=== PATIENT | female | born 1985 | race Caucasian/White ===

== ENCOUNTER 2018-07-01 15:30 | Outpatient (RCR) | payer OTHER, SELFPAY ==
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
== END 2018-07-16 15:36 | disposition home or self-care (01) ==
LOC: PT.CARL 15:30
PROVIDERS: Visit Provider Internal Medicine Adolescent Medicine
DX: M75.101 Unspecified rotator cuff tear or rupture of right shoulder, not specified as traumatic (principal)
CPT/HCPCS: 97010; 97014; 97033; 97110; 97163; G0283

== ENCOUNTER 2019-09-20 14:29 | Emergency (ER) | payer BC, SELFPAY ==
--- NOTE | 2019-09-20 15:16 | HMH.EDUTC ---
[facility] [place] Clinical Impression: Sinusitis Qualifiers: Sinusitis location: unspecified location Chronicity: acute Recurrence: non-recurrent Qualified Code(s): J01.90 - Acute sinusitis, unspecified Disposition: Home, Self-Care Condition on Discharge: Good Instructions: Sinusitis, DI for Sinusitis Additional Instructions: Drink plenty of fluids. Take tylenol or ibuprofen for pain or fever. Take the medications as directed. Follow up with your regular doctor. GO TO THE ER FOR ANY WORSENING SYMPTOMS FOLLOW THE DIRECTIONS ON THE COVID-19 HAND OUT THAT WE GAVE YOU REGARDING SELF-ISOLATION UNTIL YOU KNOW YOUR COVID-19 RESULTS Prescriptions: Brompheniramine/Pseudoephed/Dm [Bromfed Dm Cough Syrup] 5 ml PO Q6HP PRN #240 syrup PRN Reason: Cough Transmission Status: Received by [id number] predniSONE [Deltasone 10mg tablet] 10 mg PO BID 3 Days #6 tab Transmission Status: Received by [id number] Azithromycin [Z-Simeon 250mg Tab*] 250 mg PO UD DOSE PK #6 tab Transmission Status: Received by [id number] Referrals: Santhosh Patricio MD [Primary Care Provider] - Time of Disposition: 15:49 Medical Decision Making - Medical Records Medical records reviewed: No: I reviewed the patient's medical records. - [place] Inquiry Pt receiving controlled substance: No Vital Signs: 09/20/19 15:18 Temperature 98.7 F Temperature Source Oral Pulse Rate [Right Brachial] 89 Respiratory Rate 16 Blood Pressure [Right Arm] 115/80 Blood Pressure Mean [Right Arm] 91 Blood Pressure Source [Right Arm] Automatic Cuff Blood Pressure Position [Right Arm] Sitting 02 Sat by Pulse Oximetry 100 Oxygen Delivery Method Room Air Orders (Tests/Meds): ORDERS Category Date Time Status Coronavirus 19 Swab (OUTPT) Routine Lab 09/20/19 15:35 Received [facility] [place] HPI - General Stated complaint: resp syptoms Time Seen by Provider: 09/20/19 15:16 - History of Present Illness Provider Complaint: She c/o 2 days of worsening sinus congestion. She is also having left ear pain. She denies any known exposure to COVID-19. - Related Data Previous Rx's Medication Instructions Recorded Naproxen [Naproxen 500mg tab] 500 mg PO BID #28 tablet 01/23/18 Azithromycin [Z-Simeon 250mg Tab*] 250 mg PO UD DOSE PK #6 tab 09/20/19 Brompheniramine/Pseudoephed/Dm 5 ml PO Q6HP PRN #240 syrup 09/20/19 [Bromfed Dm Cough Syrup] predniSONE [Deltasone 10mg tablet] 10 mg PO BID 3 Days #6 tab 09/20/19 Allergies Allergy/AdvReac Type Severity Reaction Status Date / Time cephalexin [From Keflex] Allergy Verified 01/23/18 09:53 [facility] History - Hepatitis A Screen Attestation statement:: This patient has been screened for Hepatitis A risk factors. I have reviewed the patient's past medical history: Yes Medical History: Reports:: Anxiety Denies:: Cancer, Diabetes Mellitus Type 1, Diabetes Mellitus Type 2, MRSA Other Surgeries: Yes: Amputation: No Fractures: No - Social History Smoking Status: Never smoker Alcohol Intake: never - Psychiatric History Pschychiatric History:: Reports:: Anxiety ROS Obtained: Yes All systems reviewed & no additional complaints - Constitutional Constitutional: Denies chills, Denies fever(s), Reports poor appetite, Reports malaise - Eyes Eyes: Denies eye discharge - ENT Ears, Nose, Mouth, and Throat: Reports as per HPI - Cardiovascular Cardiovascular: Denies chest pain - Respiratory Respiratory: No chest congestion, No cough Physical Exam - General General appearance: alert, in no apparent distress - Head Head exam: atraumatic, normocephalic, normal inspection - Eye Eye exam: Present: normal appearance, PERRL, EOMI - ENT ENT exam: Present: normal exam, normal oropharynx, mucous membranes moist, TM's normal bilaterally, normal external ear exam - Neck Neck exam: Present: normal inspection, full ROM, trachea midline. Absent: meningismus, lymphade
[2019-09-20 15:18] VITALS: BP 115/80; PULSE 89; RESP 16; TEMP 37.1; O2SAT 100; BMI 29.7
[2019-09-20 15:50] VITALS: BP 115/80; PULSE 89; RESP 16; TEMP 37.1; O2SAT 100
[2019-09-20 19:25] LABS: UTC Strep Screen (Rapid) Negative (Negative)
== END 2019-09-20 15:56 | disposition home or self-care (01) ==
PROVIDERS: Emergency Provider Nurse Practitioner Family; PCP Internal Medicine Adolescent Medicine
DX: J01.90 Acute sinusitis, unspecified (principal); Z20.828 Contact with and (suspected) exposure to other viral communicable diseases; F41.9 Anxiety disorder, unspecified; Z88.1 Allergy status to other antibiotic agents
CPT/HCPCS: 87880; 99202; U0003

== ENCOUNTER → 2019-11-12 15:39 | Outpatient (CLI) | payer BC, SELFPAY | PROVIDERS: PCP Internal Medicine Adolescent Medicine; Visit Provider Internal Medicine Adolescent Medicine | DX: Z03.818 Encounter for observation for suspected exposure to other biological agents ruled out (principal) | CPT/HCPCS: U0003 ==

== ENCOUNTER 2020-03-07 13:41 | Emergency (ER) | payer OTHER, SELFPAY ==
--- NOTE | 2020-03-07 14:41 | XR_ITS ---
PROCEDURE: XR LUMBAR SPINE 2-3V CLINICAL INDICATION: FALL AT WORK COMPARISON: No exams were available for comparison FINDINGS: No fracture or dislocation. No lytic or blastic change. There is normal mineralization. The joint spaces are well-preserved. No significant degenerative/arthritic changes. No erosive changes evident. Other findings:None. IMPRESSION: Negative lumbar Dictated by: Yobani Ramirez MD 03/07/2020 15:47 Yobani aRmirez MD in [place] 03/07/2020 15:47
--- NOTE | 2020-03-07 14:41 | XR_ITS ---
PROCEDURE: XR COCCYX 2V CLINICAL INDICATION: FALL AT WORK Posttraumatic pain COMPARISON: CR XR HIP LT 2-3V W/PELVIS from 03/07/2020 CR XR LUMBAR SPINE 2-3V from 03/07/2020 FINDINGS: There is anterior angulation at the tip of the coccyx. No displaced fracture is evident. There is an inverted munson-shaped lucency noted over the lower pelvic region which is reported to represent a menstrual cup. The joint spaces are well-preserved. No significant degenerative/arthritic changes. No erosive changes evident. Other findings:None. IMPRESSION: Anterior angulation at the tip of the coccyx. This is nonspecific and could be due to nondisplaced fracture either acute or chronic. No displaced fractures are evident. Inverted munson-shaped lucency in the lower pelvic region which is reported to represent a menstrual cup. Dictated by: Yobani Ramirez MD 03/07/2020 15:46 Yobani Ramirez MD in [place] 03/07/2020 15:46
--- NOTE | 2020-03-07 14:41 | XR_ITS ---
PROCEDURE: XR HIP LT 2-3V W/PELVIS CLINICAL INDICATION: FALL AT WORK Pain COMPARISON: No exams were available for comparison FINDINGS: No fracture or dislocation is evident. No significant degenerative change. No lytic or blastic change. Inverted munson-shaped lucency overlying the lower pelvic region reported represent a menstrual cup IMPRESSION: Negative left hip Dictated by: Yobani Ramirez MD 03/07/2020 15:48 Yobani Ramirez MD in [place] 03/07/2020 15:48
[2020-03-07 14:50] VITALS: BP 137/90; PULSE 120; RESP 14; TEMP 36.1; O2SAT 97; BMI 29.7
--- NOTE | 2020-03-07 16:04 | HMH.EDUTC ---
[facility] [place] Disposition Clinical Impression: Fractured coccyx Qualifiers: Encounter type: initial encounter Fracture type: closed Qualified Code(s): S32.2XXA - Fracture of coccyx, initial encounter for closed fracture Fall Qualifiers: Encounter type: initial encounter Qualified Code(s): W19.XXXA - Unspecified fall, initial encounter Low back pain Qualifiers: Chronicity: acute Back pain laterality: unspecified Sciatica presence: without sciatica Qualified Code(s): M54.5 - Low back pain Disposition: Home, Self-Care Condition on Discharge: Good Instructions: Coccyx Fracture, DI for Coccyx Fracture Additional Instructions: Follow up with your primary care doctor. Rest, take ibuprofen. I sent in a prescription to your pharmacy. GO TO THE ER FOR ANY WORSENING SYMPTOMS OR CONCERNS Prescriptions: Ibuprofen [Ibuprofen 600mg Tablet] 600 mg PO Q6HP PRN #30 tab PRN Reason: Mild Pain Transmission Status: Received by [facility] Referrals: Santhosh Patricio MD [Primary Care Provider] - Forms: Work/School Release Time of Disposition: 16:12 Medical Decision Making - Medical Records Medical records reviewed: No: I reviewed the patient's medical records. - [place] Inquiry Pt receiving controlled substance: No Vital Signs: 03/07/20 14:50 03/07/20 16:18 Temperature 97.0 F L 97.0 F L Temperature Source Oral Pulse Rate 120 H Pulse Rate [Right Brachial] 120 H Respiratory Rate 14 14 Blood Pressure 137/90 Blood Pressure [Right Arm] 137/90 Blood Pressure Mean [Right Arm] 105 Blood Pressure Source [Right Arm] Automatic Cuff Blood Pressure Position [Right Arm] Sitting 02 Sat by Pulse Oximetry 97 Oxygen Delivery Method Room Air - Radiology Data #1 Image(s): L-Spine Image Reviewed: Yes I reviewed the patient's radiology image, Yes I have reviewed radiologist's interpretation PROCEDURE: XR LUMBAR SPINE 2-3V CLINICAL INDICATION: FALL AT WORK COMPARISON: No exams were available for comparison FINDINGS: No fracture or dislocation. No lytic or blastic change. There is normal mineralization. The joint spaces are well-preserved. No significant degenerative/arthritic changes. No erosive changes evident. Other findings:None. IMPRESSION: Negative lumbar Dictated by: Yobani Ramirez MD 03/07/2020 15:47 Yobani Ramirez MD in [place] 03/07/2020 15:47 #2 Image(s): Other (coccyx) Image Reviewed: Yes I reviewed the patient's radiology image, Yes I have reviewed radiologist's interpretation Preliminary Findings: Abnormal PROCEDURE: XR COCCYX 2V CLINICAL INDICATION: FALL AT WORK Posttraumatic pain COMPARISON: CR XR HIP LT 2-3V W/PELVIS from 03/07/2020 CR XR LUMBAR SPINE 2-3V from 03/07/2020 FINDINGS: There is anterior angulation at the tip of the coccyx. No displaced fracture is evident. There is an inverted munson-shaped lucency noted over the lower pelvic region which is reported to represent a menstrual cup. The joint spaces are well-preserved. No significant degenerative/arthritic changes. No erosive changes evident. Other findings:None. IMPRESSION: Anterior angulation at the tip of the coccyx. This is nonspecific and could be due to nondisplaced fracture either acute or chronic. No displaced fractures are evident. Inverted munson-shaped lucency in the lower pelvic region which is reported to represent a menstrual cup. Dictated by: Yobani Ramirez MD 03/07/2020 15:46 Yobani Ramirez MD in [place] 03/07/2020 15:46 #3 Image(s): Hip Image Reviewed: Yes I reviewed the patient's radiology image, Yes I have reviewed radiologist's interpretation Preliminary Findings: No Fracture Seen PROCEDURE: XR HIP LT 2-3V W/PELVIS CLINICAL INDICATION: FALL AT WORK Pain COMPARISON: No exams were available for comparison FINDINGS: No fracture or dislocation is evident. No significant degenerative change. No lytic or blastic change. Inverted munson-shaped lucency
[2020-03-07 16:18] VITALS: BP 137/90; PULSE 120; RESP 14; TEMP 36.1; O2SAT 97
== END 2020-03-07 16:20 | disposition home or self-care (01) ==
PROVIDERS: Emergency Provider Nurse Practitioner Family; PCP Internal Medicine Adolescent Medicine
DX: S32.2XXA Fracture of coccyx, initial encounter for closed fracture; W10.9XXA Fall (on) (from) unspecified stairs and steps, initial encounter; Y92.69 Other specified industrial and construction area as the place of occurrence of the external cause; Y99.0 Civilian activity done for income or pay
CPT/HCPCS: 72100; 72220; 73502; 99202; G0463

== ENCOUNTER → 2020-10-02 16:01 | Outpatient (CLI) | payer BC, SELFPAY | PROVIDERS: Visit Provider Internal Medicine Adolescent Medicine | DX: R30.0 Dysuria (principal) | CPT/HCPCS: 87086; 87088; 87186 ==

== ENCOUNTER → 2020-11-27 17:46 | Outpatient (CLI) | payer OTHER, SELFPAY | PROVIDERS: Visit Provider Internal Medicine Adolescent Medicine | DX: N30.00 Acute cystitis without hematuria (principal); B96.20 Unspecified Escherichia coli [E. coli] as the cause of diseases classified elsewhere | CPT/HCPCS: 87086; 87088; 87186 ==

== ENCOUNTER → 2021-03-27 08:24 | Outpatient (CLI) | payer OTHER, SELFPAY ==
[2021-03-28 12:13] LABS: Hepatitis B Surf Ab Quant 93.3 mIU/mL (Immunity>9.9)
[2021-03-28 17:24] LABS: Measles Antibodies, IgG <13.5 AU/mL (Immune >16.4); Mumps Abs, IgG <9.0 AU/mL (Immune >10.9); Varicella Zoster IgG 717 index (Immune >165)
[2021-03-29 07:50] LABS: Rubella Antibodies, IgG 1.65 index (Immune >0.99)
[2021-03-29 22:08] LABS: QuantiFERON-TB Gold Plus Negative (Negative)
== END ==
PROVIDERS: PCP Nurse Practitioner Family; Visit Provider Nurse Practitioner Family
DX: Z01.84 Encounter for antibody response examination (principal)
CPT/HCPCS: 36415; 86480; 86706; 86735; 86762; 86765; 86787

== ENCOUNTER → 2022-12-13 14:42 | Outpatient (CLI) | payer OTHER, SELFPAY | PROVIDERS: PCP Family Medicine; Visit Provider Nurse Practitioner Family | DX: J02.9 Acute pharyngitis, unspecified (principal) | CPT/HCPCS: 87070 ==

== ENCOUNTER 2024-09-09 10:15 | Outpatient (CLI) | payer BC, SELFPAY ==
--- OUTSIDE RECORDS SUMMARY | 2015-09-12 09:15 | XMS_ITS | Encounter Summary ---
Author Organization [facility] Address [address] [place] [address] Care Team Providers Care Metal Die Finisher Name Role Phone Santhosh Patricio MD Primary Care Provider [phone] Encounter Details Date Type Department Care Team (Latest Contact Info) Description 09/12/2015 9:15 AM EDT Hospital Encounter [facility] [phone] First trimester Social History Tobacco Use Types Packs/Day Years Used Date Smoking Tobacco: Never Smokeless Tobacco: Never Alcohol Use Standard Drinks/Week Comments No 0 (1 standard drink = 0.6 oz pur e alcohol) Abuse Screen Answer Date Recorded Unsafe at Home or Work/School Not on file Feels Threatened by Someone? Not on file 10/2022 Does Anyone Keep You from Co ntacting Others or Doint Things Outside the Home? Not on file 11/18/2022 Physical Sign of Abuse Present Not on file 1 Housing Stability Answer Date Recorded Current Living Arrangements Not on file 10/2022 Potentially Unsafe Housing Conditions Not on michele e 11/18/2022 Family and Community Support Answer Henri e Recorded Help with Day-to-Day Activities Not on file 11/18/2022 Lonely or Isolated Not on file 11/18/2022 Employment Answer Date Recorded Do you want help finding or keeping work or a hugh b? Not on file 11/18/2022 Disabilities Answer Date Recorded Concentrating, Remembering, or Making Decisions Difficulty Not on file 11/18/2022 Doing Errands Independently Difficulty Not on fi le 11/18/2022 Education Answer Date Recorded Help with school or training? Not on file Preferred Language Not on file 11/18/2022 Comments No Sex and Gender Information Value Date Recorded Sex Assigned at Not on file Legal Sex Female 1:07 PM EDT Gender Identity Not on file Sexual Orientation Not on file documented as of this encounter Plan of Treatment Not on file documented as of this encounter Procedures Procedure Name Priority Date/Time Associated Diagnosis Comments US OB TRANSVAGINAL Routine 09/12/2015 10 :12 AM EDT First trimester documented in this encounter Results * US ob transvaginal (09/12/2015 10:12 AM EDT) Anatomical Region Laterality Modality Body Ultrasound 09/12/2015 9:42 AM EDT Narrative 09/12/2015 2:49 PM EDT PAT NAME: ELENA SCHMITT MED REC#: [id number] DA: [id number] PAT GEND: F PAT TYPE: O EXAM HENRI: [id number] REF PHYS COSTA ALANIZ Indication ======== Dating. History ====== Previous Outcomes 3 Para 2 Other: C/s & Method ====== Transvaginal ultrasound examination, Voluson E6. Adequate view. ========= Craven . Number of fetuses: 1. Dating ====== LMP on: 07/02/2015 GA by LMP 10 w + 2 d CHELSEA by LMP: 04/07/2016 Ultrasound examination on: 09/12/2015 GA by U/S based upon: CRL GA by U/S 9 w + 2 d CHELSEA by U/S: 04/14/2016 Assigned: Dating performed on 09/12/2015, based on ultrasound (CRL) Assigned GA 9 w + 2 d Assigned CHELSEA: 04/14/2016 Assessment Gestational sac: visualized Location: intrauterine Yolk sac: visualized Embryo: visualized CRL 25.3 mm 51% 9w 2d Cardiac activity: present FHR 178 bpm Placenta: Too early to evaluate Maternal Structures Uterus and ovaries are within normal limits. There is a corpus luteum on the left ovary. Impression ========= Single viable intrauterine with normal cardiac activity and biometry not consistent with clinical dates. Recommendation Follow-up as clinically indicated. Assistant Education Director: Ale Coles RDMS Physician: Master Joel MD Electronically signed by: Master Joel MD at: 14:49 Procedure Note Master Joel MD - 09/12/2015 PAT NAME: ELENA SCHMITT [facility] REC#: [id number] DA: [id number] PAT GEND: F PAT TYPE: O EXAM HENRI: [id number] REF PHYS COSTA ALANIZ Indication ======== Dating. History ====== Previous Outcomes Gravida3 Para2 Other:C/s & Method ====== Transvaginal ultrasound examination, Voluson E6. Adequate view. ========= Craven . Number of fetuses: 1. Dating ====== LMP on:07/02/2015 GA by LMP10 w + 2 d CHELSEA by LMP:04/07/2016 Ultrasound examination on:09/12/2015 GA by U/S based upon:CRL GA by U/S9 w + 2 d CHELSEA by U/S:04/14/2016 Assigned:Dating performed on 09/12/2015, based on ultrasound (CRL) Assigned GA9 w + 2 d Assigned CHELSEA:04/14/2016 Assessment Gestational sac:visualized Location:intrauterine Yolk sac:visualized Embryo:visualized CRL25.3 mm51% 9w 2d Cardiac activity:present LTH050 bpm Placenta:Too early to evaluate Maternal Structures Uterus and ovaries are within normal limits. There is a corpus luteum onthe left ovary. Impression ========= Single viable intrauterine with normal cardiac activity andbiometry not consistent with clinical dates. Recommendation Follow-up as clinically indicated. Assistant Education Director: Ale Coles RDMS Physician: Master Joel MD Electronically signed by: Master Joel MD at: 14:49 Costa Alaniz MD [facility] ORDERABLES Final Result documented in this encounter Visit Diagnoses Diagnosis First trimester state, incidental documented in this encounter Care Teams Metal Die Finisher Relationship Specialty Start Date End Date Santhosh Patricio MD [facility] [address] [place] [address] PCP - General Adolescent Medicine 09/12/15 documented as of this encounter
--- OUTSIDE RECORDS SUMMARY | 2015-11-23 09:18 | XMS_ITS | Encounter Summary ---
Author Organization [facility] Address [address] [place] [address] Care Team Providers Care Tool Engine Lathe Set Up Operator Name Role Phone Santhosh Patricio MD Primary Care Provider [phone] Reason for Referral * Diagnostic Imaging (Routine) - Closed Specialty Diagnoses / Procedures Referred By Contac t Referred To Contact Radiology Diagnoses Hx successful (vaginal after ), currently Procedures US ob 14 + weeks single or first gestation Costa Alaniz MD Phone: tel: fax: [facility] Phone: tel: Referral ID Status Reason Start Date Expiration Date Visits Re quested Visits Authorized [id number] Closed 10/17/2015 04/14/2016 1 1 Reason for Visit * Diagnostic Imaging (Routine) - Closed Specialty Diagnoses / Procedures Referred By Contac t Referred To Contact Radiology Diagnoses Hx successful (vaginal after ), currently Procedures ob 14 + weeks single or first gestation Costa Alaniz MD Phone: tel: fax: [facility] Phone: tel: Referral ID Status Reason Start Date Expiration Date Visits Re quested Visits Authorized [id number] Closed 10/17/2015 04/14/2016 1 1 Encounter Details Date Type Department Care Team (Latest Contact Info) Description 11/23/2015 9:18 AM EDT Hospital Encounter [facility] [phone] Hx successful (vaginal after ), currently Social History Tobacco Use Types Packs/Day Years [...] Priority Date/Time Associated Diagnosis Comments US OB 14 + WEEKS SINGLE OR FIRST GESTATION Routine 11/23/2015 10:09 AM EDT Hx successful (vaginal after ), currently documented in this encounter Results * US ob 14 + weeks single or first gestation (11/23/2015 10:09 AM EDT) Anatomical Region Laterality Modality Body Ultrasound 11/23/2015 9:24 AM EDT Narrative 11/23/2015 5:47 PM EDT PAT NAME: ELENA SCHMITT [facility] REC#: [id number] DA: [id number] PAT GEND: F PAT TYPE: O EXAM HENRI: [id number] REF PHYS COSTA ALANIZ Indication ======== anatomy survey. History ====== Previous Outcomes 3 Para 2 Other: C/s & Method ====== Voluson E6, Transabdominal ultrasound examination. Sufficient view. ========= Craven . Number of fetuses: 1. Dating ====== GA by stated dating 19 w + 4 d CHELSEA by stated dating : 04/14/2016 Ultrasound examination on: 11/23/2015 GA by U/S based upon: AC, BPD, Femur, HC GA by U/S 20 w + 1 d CHELSEA by U/S: 04/10/2016 Assigned: Dating performed on 09/12/2015, based on ultrasound (CRL) Assigned GA 19 w + 4 d Assigned CHELSEA: 04/14/2016 General Evaluation Cardiac activity: present. movements: present. Presentation: cephalic. Placenta: Placental site: anterior. Umbilical cord: Cord vessels: 3 vessel cord. Amniotic fluid: Amount of AF: normal. Biometry Biometry BPD 43.9 mm 37% 19w 2d OFD 59.9 mm 68% 19w 3d HC 166.6 mm 32% 19w 2d AC 150.7 mm 69% 20w 2d Femur 36.7 mm 96% 21w 5d Cerebellum tr 20.3 mm 64% 19w 2d CM 5.6 mm 74% EFW 372 g Calculated by: Hadlock ([id number]-FL) EFW (lb) 0 lb EFW (oz) 13 oz Cephalic index 0.73 6% HC / AC 1.11 13% FL / BPD 0.84 >99% FL / AC 0.24 98% Head / Face / Neck Teaching Aide 5.4 mm Anatomy Cranium: Cranial vault appears intact with normal head shape. Brain: The intracranial contents appear normal including the cerebral ventricles, choroid plexus, CSP, cisterna magna, cerebellum 4-chamber view: suboptimal RVOT: suboptimal LVOT: suboptimal Diaphragm: Intact Stomach: Appears normal Kidneys: Appear normal Bladder: Appears normal Abdom. wall: Abdominal wall is intact Stomach: left-sided Gender: female Wants to know gender: yes Maternal Structures Uterus / Cervix Cervix: Visualized Approach: Transvaginal Cervical length 3.00 cm Other: Uterus and adnexa appear normal Oiler And Greaser Comments Single intrauterine is present Due to position and maternal factors, the above selected anatomy could not be fully evaluated on today's exam. A transvaginal scan was performed, there appears to be a dimple in the internal os area of the cervix that contains a small amount of debris which floats within the amniotic fluid. This area did not seem large enough to be called funnelling, however the reading physician will evaluate. Impression ========= No structural abnormalities are seen on today's scan. Anatomic survey is incomplete. Cervical length appears normal without evidence of funneling. Recommendation If needed clinically, the patient should return at a subsequent visit to complete the anatomic screening. Oiler And Greaser: Violette Rojas RDMS Physician: Master Joel MD Electronically signed by: Master Joel MD at: 17:47 Procedure Note Master Joel MD - 11/23/2015 PAT NAME: ELENA SCHMITT [facility] REC#: [id number] DA: [id number] PAT GEND: F PAT TYPE: O EXAM HENRI: [id number] REF PHYS CORBIN, COSTA Indication ======== anatomy survey. History ====== Previous Outcomes Gravida3 Para2 Other:C/s & Method ====== Voluson E6, Transabdominal ultrasound examination. Sufficient view. ========= Craven . Number of fetuses: 1. Dating ====== GA by stated dating 19 w + 4 d CHELSEA by stated dating :04/14/2016 Ultrasound examination on:11/23/2015 GA by U/S based upon:AC, BPD, Femur, HC GA by U/S20 w + 1 d CHELSEA by U/S:04/10/2016 Assigned:Dating performed on 09/12/2015, based on ultrasound (CRL) Assigned GA19 w + 4 d Assigned CHELSEA:04/14/2016 General Evaluation Cardiac activity: present. movements: present. Presentation: cephalic. Placenta: Placental site: anterior. Umbilical cord: Cord vessels: 3 vessel cord. Amniotic fluid: Amount of AF: normal. Biometry Biometry BPD43.9 mm37% 19w 2d OFD59.9 mm68% 19w 3d HC166.6 mm32% 19w 2d AC150.7 mm69% 20w 2d Femur36.7 mm96% 21w 5d Cerebellum tr20.3 mm64% 19w 2d CM5.6 mm74% [id number] g Calculated by:Hadlock (RPE-HF-LK-FL) EFW (lb)0 lb EFW (oz)13 oz Cephalic index0.736% HC / AC1.1113% FL / BPD0.84>99% FL / AC0.2498% Head / Face / Neck Vp5.4 mm Anatomy Cranium:Cranial vault appears intact with normal head shape. Brain: The intracranial contents appear normal including the cerebralventricles, choroid plexus, CSP, cisterna magna, cerebellum 4-chamber view:suboptimal RVOT:suboptimal LVOT:suboptimal Diaphragm:Intact Stomach:Appears normal Kidneys:Appear normal Bladder:Appears normal Abdom. wall:Abdominal wall is intact Stomach:left-sided Gender:female Wants to know gender:yes Maternal Structures Uterus / Cervix Cervix:Visualized Approach:Transvaginal Cervical length3.00 cm Other:Uterus and adnexa appear normal Oiler And Greaser Comments Single intrauterine is present Due to position and maternal factors, the above selected anatomycould not be fully evaluated on today's exam. A transvaginal scan was performed, there appears to be a dimple in theinternal os area of the cervix that contains a small amount of debris which floats within the amniotic fluid. This area did not seem largeenough to be called funnelling, however the reading physician willevaluate. Impression ========= No structural abnormalities are seen on today's scan. Anatomic survey is incomplete. Cervical length appears normal withoutevidence of funneling. Recommendation If needed clinically, the patient should return at a subsequent visit tocomplete the anatomic screening. Oiler And Greaser: Violette Rojas RDMS Physician: Master Joel MD Electronically signed by: Master Joel MD at: 17:47 us Costa Alaniz MD [facility] US ORDERABLES Final Result documented in this encounter Visit Diagnoses Diagnosis Hx successful (vaginal after ), currently Previous delivery, unspecified as to episode of care or not applicable documented in this encounter Care Teams Tool Engine Lathe Set Up Operator Relationship Specialty Start Date End Date Santhosh Patricio MD [address] [facility] [address] [place] [address] PCP - General Adolescent Medicine 09/12/15 documented as of this encounter
--- OUTSIDE RECORDS SUMMARY | 2016-01-03 11:14 | XMS_ITS | Encounter Summary ---
Author Organization [facility] Address [address] [place] [address] Care Team Providers Care Optician Manager Name Role Phone Santhosh Patricio MD Primary Care Provider [phone] Reason for Referral * Diagnostic Imaging (Routine) - Closed Specialty Diagnoses / Procedures Referred By Contac t Referred To Contact Radiology Diagnoses Hx successful (vaginal after ), currently Procedures US Ob Limited 1 + Fetuses Costa Alaniz MD Phone: tel: fax: [address] [phone] Phone: tel: fax: Referral ID Status Reason Start Date Expiration Date Visits Re quested Visits Authorized [id number] Closed 11/23/2015 05/21/2016 1 1 Reason for Visit * Diagnostic Imaging (Routine) - Closed Specialty Diagnoses / Procedures Referred By Contac t Referred To Contact Radiology Diagnoses Hx successful (vaginal after ), currently Procedures US Ob Limited 1 + Fetuses Costa Alaniz MD Phone: tel: fax: [address] [address] Phone: tel: fax: Referral ID Status Reason Start Date Expiration Date Visits Re quested Visits Authorized [id number] Closed 11/23/2015 05/21/2016 1 1 Encounter Details Date Type Department Care Team (Latest Contact Info) Description 01/03/2016 10:14 AM EST Hospital Encounter [facility] [phone] Hx successful (vaginal after ), currently Social [...] Priority Date/Time Associated Diagnosis Comments US OB LIMITED 1 + FETUSES Routine 01/03/2016 11:17 AM EST Hx successful (vaginal after ), currently documented in this encounter Results * US Ob Limited 1 + Fetuses (01/03/2016 11:17 AM EST) Anatomical Region Laterality Modality Body Ultrasound 01/03/2016 10:4 2 AM EST Narrative 01/03/2016 12:21 PM EST PAT NAME: ELENA SCHMITT [facility] REC#: [id number] DA: [id number] PAT GEND: F PAT TYPE: O EXAM HENRI: [id number] REF PHYS COSTA ALANIZ Indication ======== Follow-up evaluation for anomaly scan due to position. History ====== Previous Outcomes 3 Para 2 Other: C/s & Method ====== Voluson E6, Transabdominal ultrasound examination. Sufficient. ========= Craven . Number of fetuses: 1. Dating ====== GA by stated dating 25 w + 3 d CHELSEA by stated dating : 04/14/2016 Assigned: Dating performed on 09/12/2015, based on ultrasound (CRL) Assigned GA 25 w + 3 d Assigned CHELSEA: 04/14/2016 General Evaluation Cardiac activity: present. FHR 148 bpm. movements: present. Presentation: breech. Placenta: Placental site: anterior. Amniotic fluid: Amount of AF: normal. Biometry Biometry Calculated by: Hadlock ([id number]-FL) FHR 148 bpm Anatomy RVOT: Appears normal LVOT: Appears normal Gender: female Wants to know gender: yes Maternal Structures Uterus and adnexa normal Lab Aide Comments Single intrauterine is present. Impression ========= No structural abnormalities are seen on today's scan. Anatomic survey is now complete. Recommendation Follow-up scan as clinically indicated. Lab Aide: Violette Rojas RDMS Physician: Bubba Sibley MD Electronically signed by: Bubba Sibley MD at: 12:21 Procedure Note Bubba Sibley MD - 01/03/2016 PAT NAME: ELENA SCHMITT [facility] REC#: [id number] DA: 1985 PAT GEND: F PAT TYPE: O EXAM HENRI: [id number] REF PHYS COSTA ALANIZ Indication ======== Follow-up evaluation for anomaly scan due to position. History ====== Previous Outcomes Gravida3 Para2 Other:C/s & Method ====== Voluson E6, Transabdominal ultrasound examination. Sufficient. ========= Craven . Number of fetuses: 1. Dating ====== GA by stated dating 25 w + 3 d CHELSEA by stated dating :04/14/2016 Assigned:Dating performed on 09/12/2015, based on ultrasound (CRL) Assigned GA25 w + 3 d Assigned CHELSEA:04/14/2016 General Evaluation Cardiac activity: present. FHR 148 bpm. movements: present. Presentation: breech. Placenta: Placental site: anterior. Amniotic fluid: Amount of AF: normal. Biometry Biometry Calculated by:Hadlock (RUX-FH-OH-FL) NAG770 bpm Anatomy RVOT:Appears normal LVOT:Appears normal Gender:female Wants to know gender:yes Maternal Structures Uterus and adnexa normal Lab Aide Comments Single intrauterine is present. Impression ========= No structural abnormalities are seen on today's scan. Anatomicsurvey is now complete. Recommendation Follow-up scan as clinically indicated. Lab Aide: Violette Rojas RDMS Physician: Bubba Sibley MD Electronically signed by: Bubba Sibley MD at: 12:21 us Costa Alaniz MD [facility] [place] US ORDERABLES Final Result documented in this encounter Visit Diagnoses Diagnosis Hx successful (vaginal after ), currently Previous delivery, unspecified as to episode of care or not applicable documented in this encounter Care Teams Optician Manager Relationship Specialty Start Date End Date Santhosh Patricio MD [facility] [address] [place] [id number] PCP - General Adolescent Medicine 09/12/15 documented as of this encounter
--- OUTSIDE RECORDS SUMMARY | 2024-05-15 17:30 | XMS_ITS ---
Author Organization [facility] Address [address] [place] [address] Care Team Providers Care Sanding Machine Buffer Name Role Phone Santhosh Patricio Primary Care Provider Migration, Provider Unavailable Unavailable Allergies Allergen (clinical drug ingredient) Drug/Non Drug Allergy documented on EMR Reaction Allergy Type Onset Date Status KEFLEX (uncoded) Unknown Allergy Act braden REASON [facility]ISIT [facility] Conversion Encounter Medications Medication SIG (Take, Route, Frequency, Duration) Notes Start Date End Date Status Xyzal Allergy 24HR 5 MG 1 tab(s) orally once a day (in the evening); Duration: 30 day(s) 08/25/2020 Active buPROPion HCl ER (XL) 150 MG 1 tab(s) orally every 24 hours; Duration: 30 day(s) 03/14/2021 Activ e Encounters Encounter Location Date Provider Diagnosis [facility] [address] [facility] [address] [place] [address] 05/15/2024 Provider Migration Depression with anxiety F41.8 Assessments Encounter Date Diagnosis (ICD Code) Assessment Notes Treatment Notes Treatment Clinical Notes Section Notes 05/15/2024 Depression with anxiety (ICD-10 - F41.8) Plan Of Treatment Medication Medication Name Sig Start Date Stop Date Notes buPROPion HCl ER (XL) 150 MG 1 tab(s) or ally every 24 hours; Duration: 30 day(s) 03/14/2021 Progress Notes * Elena SCHMITTDOB:1985 (39 yo F)Acc No.[id number]:05/15/2024 Patient: Elena LAL Provider: Lenora Portillo :1985 A ge:38 Y S ex:Female Date:05/15/2024 Address:[facility] [address], [facility] [place], [id number] Pcp:Santhosh Patricio Subjective: * Chief Complaints: * 1 . Multum To Medispan Conversion Encounter. * Medical History: * Medications: T aking Xyzal Allergy 24HR 5 MG Tablet 1 tab(s) orally once a day (in the evening) * Allergies: K EFLEX. Objective: * Vitals: Assessment: * Assessment: 1. D epression with anxiety - F41.8 (Primary) Plan: * Treatment: * * Electronic signature of Prov ider Migration on 09/10/2024 at 10:27 AM EDT Sign off status: Pending * Provider: Lenora Portillo Date: 0 05/15/2024 Generated for Booker das/Paty/Nasreensmitting on: 0 09/10/2024 10:27 AM EDT
--- OUTSIDE RECORDS SUMMARY | 2024-09-10 10:27 | XMS_ITS | Clinical Summary ---
Author Organization [facility] Address [address] [place] [address] Care Team Providers Care Formation Fracturing Operator Name Role Phone Santhosh Patricio MD Primary Care Provider [phone] Allergies Active Allergy Reactions Criticality Noted Date Comments Cephalexin Rash Low 09/11/2015 Medications RICKEY 0.35 MG tablet TAKE 1 TABLET BY MOUTH EVERY DAY 28 tablet 05/13/2017 Active Escitalopram Oxalate (LEXAPRO PO) Take by mouth. Active amoxicillin-clav ulanate (AUGMENTIN) 875-125 MG per tabletIndication s:Acute recurrent pansinusitis,Acu te UTI Take 1 tablet by mouth 2 (Two) Times a Day. 20 tablet 11/17/2017 Active norethindrone (MICRONOR) 0.35 MG tablet TAKE 1 TABLET BY MOUTH EVERY DAY. NEEDS APPOINTMENT * 28 tablet 04/29/2018 Active Active Problems Problem Noted Date Diagnosed Date Hx successful 09/12/2015 Resolved Problems Problem Noted Date Diagnosed Date Resolved Date 04/14/2016 05/21/2016 False labor after 37 weeks o f gestation without delivery 03/30/2016 05/21/2016 care, subsequent pr egnancy in third trimester 09/12/2015 05/21/2016 Family History Medical History Relation Name Comments No Known Problems Father No Known Problems Maternal Grandmother No Known Problems Mother Hypertension Paternal Grandfather Stroke Paternal Grandfather No Known Problems Paternal Grandmother Relation Name Status Comments Father Alive Maternal Grandmother Alive Mother Alive Paternal Grandfather Alive Paternal Grandmother Alive Social History Tobacco Use Types Packs/Day Years [...] e 11/18/2022 Family and Community Support Answer Lawrence e Recorded Help with Day-to-Day Activities Not [...] on file Sexual Orientation Not on file Last Filed Vital Signs Vital Sign Reading Time Taken Comments Blood Pressure 108/72 11/17/2017 3:00 PM EDT Pulse 84 11/17/2017 3:00 PM EDT Temperature 36.8 C (98.3 F) 11/17/2017 3:00 PM EDT Respiratory Rate 14 11/17/2017 3:00 PM EDT Oxygen Saturation 98% 11/17/2017 3:00 PM EDT Inhaled Oxygen Concentration - - Weight 88.4 kg (194 lb 12.8 oz) 11/17/2017 3:00 PM EDT Height 170.2 cm (5' 7 ) 11/17/2017 3:00 PM EDT Body Mass Index 30.51 11/17/2017 3:00 PM EDT Plan of Treatment Health Maintenance Due Date Last Done Comments TDAP/TD VACCINES (1 - Tdap) 2005 ANNUAL PHYSICAL 10/17/2015 HEPATITIS C SCREENING 10/17/2015 Annual Gynecologic Pelvic an d Breast Exam 09/12/2016 09/12/2015 COVID-19 Vaccine (1 - 2023-2 5 season) 2023 INFLUENZA VACCINE 11/10/2024 Pneumococcal Vaccine 0-49 Aged Out No longer eligible based on patient's age to complete this topic Procedures Procedure Name Priority Date/Time Associated Diagnosis Comments SCANNED - PAP SMEAR 09/12/2015 from Last 3 Months or Most Recently Relevant to Health Maintenance Results * SCANNED - PAP SMEAR (09/12/2015) us Damon Goins MD CHART REVIEW TABS Final Resul t from Last 3 Months or Most Recently Relevant to Health Maintenance Insurance Advance Directives * Full Code (Latest Code Status on File) Date Activated Date Inactivated Comments 04/15/2016 1:45 AM 04/16/2016 7:38 PM * Full Code Date Activated Date Inactivated Comments 04/14/2016 3:03 PM 04/15/2016 1:45 AM Care Teams Formation Fracturing Operator Relationship Specialty Start Date End Date Santhosh Patricio MD [address] [facility] [address] [facility] [facility] [place] [address] PCP - General Adolescent Medicine 09/12/15
--- OUTSIDE RECORDS SUMMARY | 2024-09-10 10:28 | XMS_ITS | Patient Health Record ---
Author Organization [facility] Address [address] [place] [address] Care Team Providers Care Screw Machine Setter Name Role Phone ShengSanthosh Primary Care Provider Migration, Provider Unavailable Unavailable Allergies Allergen (clinical drug ingredient) Drug/Non Drug Allergy documented on EMR Reaction Allergy Type Onset Date Status KEFLEX (uncoded) Unknown Allergy Act braden Reason For Referral No Information Medications Medication SIG (Take, Route, Frequency, Duration) Notes Start Date End Date Status Xyzal Allergy 24HR 5 MG 1 tab(s) orally once a day (in the evening); Duration: 30 day(s) 08/25/2020 Active buPROPion HCl ER (XL) 150 MG 1 tab(s) orally every 24 hours; Duration: 30 day(s) 03/14/2021 Activ e Immunizations Vaccine Route Administration Date Status Comme nts Boostrix IM Intramuscular 03/14/2021 Administered Problems Problem Type SNOMED Code ICD Code Onset Dates Problem Status W/U Status Risk Notes Problem Generalized anxiety disorder (01457250) Generalized anxiety disorder (F41.1) Active confirmed Problem Psychophysiologic insomnia (935313792) Psychophysiologic insomnia (F51.04) Active confirmed Problem Acute cystitis (57372406) Acute cystitis with hematuria (N30.01) Active confirmed Problem Mixed anxiety and depressive disorder (904189537) Depression with anxiety (F41.8) Active confirmed Problem Vitamin D deficiency (15477075) Vitamin D deficiency (E55.9) Active confirmed Problem Rupture of right rotator cuff (85244203830586304) Rotator cuff syndrome of right shoulder (M75.101) Active confirmed Problem Bilateral tinnitus (2391390715868) Tinnitus of both ears (H93.13) Active confirmed Problem Allergic rhinitis caused by pollen (01607002) Seasonal allergic rhinitis due to pollen (J30.1) Active confirmed Problem Sciatica (17180840) Acute left-s ided low back pain with left-sided sciatica (M54.42) Active confirmed Problem Postconcussion syndrome (67099989) Post concussive syndrome (F07.81) Active confirmed Encounters Encounter Location Date Provider Diagnosis [facility] [address] [facility] [address] [place] [address] 05/15/2024 Provider Migration Depression with anxiety F41.8 Assessments Encounter Date Diagnosis (ICD Code) Assessment Notes Treatment Notes Treatment Clinical Notes Section Notes 05/15/2024 Depression with anxiety (ICD-10 - F41.8) Plan Of Treatment Pending Test Test Name Order Date Blood Sugar 12/23/2014 N-Urine Culture and Sensitivity 12/19/19 10 Urinalysis 10/11/2015 Rapid Strep 01/16/2015 Rapid Strep 07/03/2015 Physical Therapy 05/11/2018 Physical Therapy 05/18/2018 Physical Therapy 05/18/2018 C-PROLACTIN 04/03/2018 C-URINE CULTURE 10/11/2015 C- TEST 04/03/2018 VENIPUNCT, ROUTINE* 12/23/2014 M-Hepatitis B Surf Ab Quant 03/14/2021 M-QuantiFERON TB Gold (In Tube) 03/14/19 M-Rubella Antibodies, IgG 03/14/2021 M-Rubeola Ab, IgG 03/14/2021 M-Mumps Abs, IgG 03/14/2021 M-Varicella Zoster IgG 03/14/2021 M-COVID 19 PCR SEND OUT 11/12/2019 Insurance Providers Payer Name Payer Address Payer Phone Subscriber Number Group Number Insured Name Patient Relationship to Insured Coverage Start Date Coverage End Date [employer] [address] [place] [address] [id number] Elena Schmitt Self - patient is the insured [place] [employer] [address] [address] [address] [facility] [address] [place] [id number] Elena Schmitt Self - patient is the insured Medications Administered Medication Instructions Date of Administration Dosage Notes Bicillin CR 03/08/2013 Bicillin CR (adult dose) 01/16/2015 1.2 units Bicillin CR (adult dose) 07/03/2015 1.2 units Ceftriaxone 500 06/21/2013 1000 mg Kenalog 06/21/2013 2 mL Kenalog 10/19/2013 1 Medical (General) History Medical History History ICD Code Acute cystitis with hematuria Vitamin D deficiency Anxiety Surgical History Surgery Date(Month/Year) tubal ligation
== END 2024-09-09 23:59 | disposition home or self-care (01) ==
LOC: LAB.DROPOF 09-10 10:25
PROVIDERS: PCP Nurse Practitioner Family; Visit Provider Nurse Practitioner Family
DX: N39.0 Urinary tract infection, site not specified (principal)
CPT/HCPCS: 87086; 87088; 87186